=== PATIENT | female | born 1975 | race Caucasian/White ===

== ENCOUNTER 2022-06-01 06:25 | Emergency (ER) | payer SELFPAY ==
[2022-06-01 06:52] VITALS: BP 109/68; PULSE 72; RESP 18; TEMP 36.6; O2SAT 98
--- NOTE | 2022-06-01 07:04 | ED.EAR ---
HPI - Ear Problem General Chief complaint: Ear Stated complaint: R ear pain Time Seen by Provider: 06/01/22 07:04 History of Present Illness HPI Narrative: Pt presents with sharp pain in right ear which started yesterday morning and worsened overnight. Pt went swimming a couple fo days ago and not sure if it's related to that. Pt says it is worse when she moves her ear externally. Pt denies fever or recent URI. Related Data Allergies Allergy/AdvReac Type Severity Reaction Status Date / Time Penicillins Allergy Difficulty Verified 06/01/22 06:51 Breathing Review of Systems Review of Systems: All systems reviewed & are unremarkable except as noted in HPI and below Exam Const: General: healthy appearing Nutritional Appearance: well nourished Orientation/consciousness: patient oriented x3 Limitations: no limitations HENMT: Ears: Abnormal EAC present (canal on right erythematous with some drainiage) and TM abnormal (tm mild erythema on right) bulging Eyes: Conjunctivae: conjunctivae normal Pupils: Equal, round and reactive pupils present EOM: EOMs intact bilaterally Direct Ophthalmoscopy: no photophobia Neck: Neck: normal visual inspection Skin: General skin exam: normal color Rashes: no rashes Neuro: General: patient oriented x3, moves all extremities, no meningeal signs, no focal motor deficits and CN's II-XI intact bilaterally Cranial nerves: Yes Nystagmus not present Speech: normal speech Extrem: General: normal to inspection and no clubbing, cyanosis or edema Psych: Mental Status: mental status grossly normal Affect: normal affect Attitude: cooperative Discharge Plan Discharge Clinical Impression: Otitis externa Patient Disposition: Home, Self-Care Condition: Stable Instructions: Antibiotic Form, Swimmer's Ear (ED) Prescriptions: New Cipro HC 0.2-1 % drops,suspension 3 drp RIGHT EAR Q12H 7 Days Qty: 10 0RF erythromycin 500 mg tablet 500 mg PO Q8H Qty: 30 0RF Follow-up/Referrals: UNKNOWN,DOCTOR [Primary Care Provider] -
--- NOTE | 2022-06-01 07:32 | PC.NURSE ---
nurse to nurse report to JACKLYN Cabrera
== END 2022-06-01 07:20 | disposition home or self-care (01) ==
PROVIDERS: Emergency Provider Emergency Medicine
DX: H60.91 Unspecified otitis externa, right ear (principal)
CPT/HCPCS: 99283

== ENCOUNTER 2023-03-25 15:54 | Emergency (ER) | payer BC, SELFPAY ==
[2023-03-25 15:59] VITALS: BP 137/79; PULSE 99; RESP 16; TEMP 36.2; O2SAT 100
--- NOTE | 2023-03-25 16:09 | ED.EAR ---
HPI - Ear Problem General Chief complaint: Ear Stated complaint: right ear pain Time Seen by Provider: 03/25/23 16:05 Source: patient, RN notes reviewed and old records reviewed Mode of arrival: ambulatory Limitations: no limitations History of Present Illness HPI Narrative: 47 year old female who presents to [facility] care with complaints of cleaning her right ear with a Q-tip and she tripped over her cat and hit her elbow on door frame jamming the Q tip in her ear. Patient reports that she had initially some blood noted from her ear and since then she has had feeling like she in underwater. Patient has no tragal tenderness MD Complaint: ear pain (right ear ) and decreased hearing (right ear) Location: right ear Duration: constant Severity: moderate Treatment prior to arrival: oral analgesic Related Data Home Medications Medication Instructions Recorded Confirmed cyclobenzaprine 10 mg tablet 10 mg PO TID PRN Back Pain 03/25/23 03/25/23 Allergies Allergy/AdvReac Type Severity Reaction Status Date / Time Penicillins Allergy Difficulty Verified 03/25/23 16:05 Breathing Review of Systems Review of Systems: CONSTITUTIONAL: Denies malaise, chills, sweats, or fever. EYES: Denies visual changes, redness, or discharge. ENT: Reports no rhinorrhea, congestion, sinus pain, positive for right otalgia no sore throat. CARDIOVASCULAR: Denies chest pain, palpitations, or edema. RESPIRATORY: Reports no cough.? Denies dyspnea. GASTROINTESTINAL: Denies abdominal pain, nausea, vomiting, diarrhea SKIN: Denies rash or itching. MUSCULOSKELETAL: Denies myalgia. NEUROLOGIC: Denies headache. All systems reviewed & are unremarkable except as noted in HPI and below PMFSH Past Medical History Medical History (Updated 03/27/23 @ 10:54 by Kenzie Martinez NP) Chronic back pain Edentulous dentures Ovarian cancer Surgical History Surgical History (Updated 03/27/23 @ 10:51 by Kenzie Martinez NP) H/O LEEP H/O: hysterectomy History of cholecystectomy History of tonsillectomy Social History Social History (Updated 03/27/23 @ 10:44 by Kenzie Martinez NP) Smoking status: Current every day smoker Tobacco type: cigarettes Gender identity (if verbalized by the patient): Female Comments At time of signature, agree with nursing past medical, surgical, social and family history. There is no relevant family history pertinent to the presenting complaint Exam Narrative: GENERAL: Well-appearing, well-nourished, and in no acute distress. HEAD: Normocephalic EYES: PERRLA, conjunctivae clear ENT: Nares clear, turbinates edematous and erythematous, clear discharge. Mucous membranes moist.Right TM red, old blood noted unable to determine if perforation, Left TM pearly esparza with dull light reflex bilaterally; no tragal tenderness. Oropharynx erythematous without lesions. Tonsils not present and throat without exudate, no drooling, no hoarseness, no trismus, uvula midline. NECK: Supple. No lymphadenopathy CHEST: Clear to auscultation, breath sounds equal. No wheezing, rhonchi, rales, or stridor. No respiratory distress, speaks in full sentences.SO2 100% on room air HEART: Regular rate and rhythm. No murmur heard. SKIN: Warm, dry, no rash. NEURO: Alert and oriented x3. PSYCH: Normal mood and affect Course Course Emergency Course: Patient is aware of diagnosis, understands and agrees to treatment plan.? Anticipatory guidance given.? Patient agrees to follow-up as directed and is aware of reasons to seek care at the emergency department. Portions of this record may have been created with voice recognition software Level of Care: Express Care Visit Vital Signs Vital signs: Vital Signs Temperature 36.2 C L 03/25/23 15:59 Pulse Rate 99 03/25/23 15:59 Respiratory Rate 16 03/25/23 15:59 Blood Pressure 137/79 03/25/23 15:59 Pulse Oximetry 100 03/25/23 15:59 Oxygen Deliver
== END 2023-03-25 16:30 | disposition home or self-care (01) ==
PROVIDERS: Emergency Provider Registered Nurse; PCP Physician Assistant
DX: S09.91XA Unspecified injury of ear, initial encounter (principal); X58.XXXA Exposure to other specified factors, initial encounter; F17.210 Nicotine dependence, cigarettes, uncomplicated
CPT/HCPCS: 99213; G0463

== ENCOUNTER 2023-06-20 10:14 | Emergency (ER) | payer BC, SELFPAY ==
--- NOTE | ~2023-06-20 | XR_ITS ---
Right Knee Technique: AP, lateral, and sunrise views were obtained. Clinical History: Injury Findings: No fracture or dislocation is seen. Osseous alignment is anatomic. Joint spaces are preserv ed without degenerative or erosive change. Soft tissues are unremarkable. No joint effusion is seen. Impression: Unremarkable right knee radiographs. Reviewed, dictated and finalized at location . Impression: Unremarkable right knee radiographs.
[2023-06-20 10:25] VITALS: BP 165/94; PULSE 68; RESP 18; TEMP 36.5; O2SAT 100
--- NOTE | 2023-06-20 10:28 | ED.GENADULT ---
HPI - General Adult General Chief complaint: Extremity Injury, Lower Stated complaint: RT KNEE PAIN Time Seen by Provider: 06/20/23 10:23 Source: patient History of Present Illness HPI narrative: 48-year-old female presenting with right knee injury. Patient states she twisted her knee approximately 4 days ago. She states this result with the and pain in the lateral aspect of her right knee. She presents complaining of continued pain in the area. No other reported injuries. Onset (ago): day(s) Related Data Home Medications Medication Instructions Recorded Confirmed cyclobenzaprine 10 mg tablet 10 mg PO TID PRN Back Pain 03/25/23 06/20/23 Allergies Allergy/AdvReac Type Severity Reaction Status Date / Time Penicillins Allergy Difficulty Verified 06/20/23 10:34 Breathing PMFSH Past Medical History Medical History (Updated 06/20/23 @ 10:52 by German Goldman DO) Chronic back pain Edentulous dentures Ovarian cancer Surgical History Surgical History (Updated 03/27/23 @ 10:51 by Kenzie Martinez NP) H/O LEEP H/O: hysterectomy History of cholecystectomy History of tonsillectomy Social History Social History (Updated 03/27/23 @ 10:44 by Kenzie Martinez NP) Smoking status: Current every day smoker Tobacco type: cigarettes Gender identity (if verbalized by the patient): Female Exam Const: General: healthy appearing and no acute distress HENMT: Head: normal to inspection and no contusions Eyes: Conjunctivae: conjunctivae normal EOM: EOMs intact bilaterally Neck: Neck: normal visual inspection and no meningeal signs Chest: Chest palpation & inspection: normal inspection of the chest and normal inspection of the chest Resp: Effort & Inspection: normal respiratory effort and not labored Cardio: Rate: regular rate Rhythm: regular rhythm GI: Inspection: non-distended GI Palp: No Guarding due to palpation present (GI) Back/Spine/Pelvis: Back: no CVA tenderness Cervical Spine: No collar present Skin: Other: Old-appearing bruising to the lateral aspect of the right knee. Neuro: General: patient oriented x3 and moves all extremities Other: Neurologically intact. No loss of sensation. Extrem: Other: Right knee is tender to palpation. No palpable deformities. Neurovascularly intact. Psych: Mental Status: mental status grossly normal Affect: normal affect Course Vital Signs Vital signs: Vital Signs Temperature 36.5 C 06/20/23 10:25 Pulse Rate 68 06/20/23 10:25 Respiratory Rate 18 06/20/23 10:25 Blood Pressure 165/94 H 06/20/23 10:25 Pulse Oximetry 100 06/20/23 10:25 Oxygen Delivery Room Air 06/20/23 10:25 Temperature 36.5 C 06/20/23 10:25 Pulse Rate 68 06/20/23 10:25 Respiratory Rate 18 06/20/23 10:25 Blood Pressure 165/94 H 06/20/23 10:25 Pulse Oximetry 100 06/20/23 10:25 Oxygen Delivery Room Air 06/20/23 10:25 Medical Decision Making MDM Narrative Medical decision making narrative: Differential diagnosis includes but not limited to soft tissue injury versus dislocation versus fracture. Will evaluate with imaging. Will administer IM Toradol for pain control. My interpretation of imaging and official read is without acute osseous injury. Most likely soft tissue injury. Will place patient in a knee immobilizer and have her follow up Orthopedics. He appears well. She is nontoxic appearing. She has no red flag symptomatology. She is neurovascularly intact. She was given strict return precautions and follow-up instructions. She feels Safe to proceed outpatient management. Vital Signs Vital Signs: Vital Signs Temperature 36.5 C 06/20/23 10:25 Pulse Rate 68 06/20/23 10:25 Respiratory Rate 18 06/20/23 10:25 Blood Pressure 165/94 H 06/20/23 10:25 Pulse Oximetry 100 06/20/23 10:25 Oxygen Delivery Room Air 06/20/23 10:25 Temperature 36.5 C 06/20/23
[2023-06-20] MEDS: KETOROLAC 30 MG/ML VIAL (*BKC) IM (10:44)
[2023-06-20 11:19] VITALS: BP 128/62; PULSE 70; RESP 16
== END 2023-06-20 11:19 | disposition home or self-care (01) ==
PROVIDERS: Emergency Provider Emergency Medicine; PCP Physician Assistant
DX: S80.01XA Contusion of right knee, initial encounter (principal); F17.210 Nicotine dependence, cigarettes, uncomplicated; X50.0XXA Overexertion from strenuous movement or load, initial encounter
CPT/HCPCS: 73562; 96372; 99283; J1885; L1830